=== PATIENT | female | born 1965 | race African-American/Black ===

== ENCOUNTER 2016-10-09 11:45 | Inpatient (IN) | payer MEDICAID ==
[~2016-10-09] VITALS: Ht 152.4 cm; Wt 79.8 kg
[2016-10-09 12:35] LABS: BASOPHILS % 0.3 % (0.0-2.0); EOSINOPHILS % 0.1 % (0.0-5.0); HEMATOCRIT. 32.8 % (36.0-48.0); HEMOGLOBIN. 10.3 g/dL (12.0-16.0); LYMPHOCYTES % 13.8 % (20.0-50.0); MEAN CORPUSCULAR HEMOGLOBIN 25.7 pg (28.0-32.0); MEAN CORPUSCULAR VOLUME 81.8 fL (81.0-99.0); MEAN PLATELET VOLUME 8.2 fl (7.4-10.4); MONOCYTES % 6.8 % (2.0-8.0); PLATELET 358 x1000/uL (130-400); RED BLOOD CELL COUNT 4.01 mill/uL (4.2-5.4); RED CELL DISTRIBUTION WIDTH 14.1 % (11.6-14.6)
[2016-10-09 12:43] LABS: CHLORIDE 109 mEq/L (98-107)
[2016-10-09 12:45] LABS: PARTIAL THROMBOPLASTIN TIME 23.1 sec (24.0-34.0); PROTHROMBIN TIME 9.9 sec
[2016-10-09 12:51] LABS: CARBON DIOXIDE 24 mEq/L (21-32)
[2016-10-09 12:53] LABS: TROPONIN I < 0.02 ng/mL (0.00-0.04)
[2016-10-09 12:58] LABS: HCG SCREEN NEGATIVE
[2016-10-09] MEDS ORDERED: LEVOFLOXACIN 750MG PREMIX 150 ML IV ONE (14:00)
[2016-10-09] MEDS ORDERED: ONDANSETRON HCL 4MG/2ML VIAL IV ONE (14:30)
[2016-10-09] MEDS ORDERED: MORPHINE SULFATE 4 MG/ML CPJ (NOT FOR IM USE) IV ONE (14:30)
[2016-10-09 16:10] LABS: CLARITY URINE CLEAR (CLEAR); COLOR URINE YELLOW (YELLOW); GLUCOSE URINE NEGATIVE (NEGATIVE); KETONES URINE NEGATIVE (NEGATIVE); LEUKOCYTE ESTERASE URINE NEGATIVE (NEGATIVE); NITRITE URINE NEGATIVE (NEGATIVE); OCCULT BLOOD URINE NEGATIVE (NEGATIVE); PROTEIN URINE NEGATIVE (NEGATIVE); SPECIFIC GRAVITY URINE 1.018 (1.005-1.030); UROBILINOGEN URINE 0.2 E.U./dL (0.2-1.0)
[2016-10-09 20:20] VITALS: BP 130/64
[2016-10-09 21:00] VITALS: BP 130/64
[2016-10-09] MEDS ORDERED: IPRATROPIUM/ALBUTEROL 0.5-3(2.5)MG/3ML NEB HHN PRN (21:00)
[2016-10-09] MEDS ORDERED: ONDANSETRON HCL 4MG TABLET PO PRN (21:00)
[2016-10-10] VITALS: BP 115/60
[2016-10-10 04:00] VITALS: BP 120/61
[2016-10-10] MEDS: OMEPRAZOLE 20MG CAPSULE EXTENDED RELEASE PO SCH (06:30)
[2016-10-10] MEDS: HYDROCODONE/ACETAMINOPHEN 10/325MG TABLET PO PRN ×4 (06:30→23:58)
[2016-10-10 07:01] LABS: CARBON DIOXIDE 22 mEq/L (21-32); CHLORIDE 111 mEq/L (98-107)
[2016-10-10 07:11] LABS: HDL CHOLESTEROL 63 mg/dL (40-59); LDL CHOLESTEROL 67 mg/dL (5-100)
[2016-10-10 08:05] VITALS: BP 122/56
[2016-10-10 12:00] VITALS: BP 108/55
[2016-10-10] MEDS: SODIUM CHLORIDE 0.45% 1,000 ML IV SCH (13:51)
[2016-10-10 16:10] VITALS: BP 108/50
[2016-10-10] MEDS ORDERED: AZITHROMYCIN 500 MG in DEXT 5% WATER 250 ML IV SCH (18:00)
[2016-10-10] MEDS ORDERED: CEFTRIAXONE 1 G PREMIX 50 ML IV SCH (18:00)
[2016-10-10 20:00] VITALS: BP 122/53
[2016-10-11] VITALS: BP 113/52
[2016-10-11 04:00] VITALS: BP 102/50
[2016-10-11] MEDS: OMEPRAZOLE 20MG CAPSULE EXTENDED RELEASE PO SCH (06:18)
[2016-10-11] MEDS: HYDROCODONE/ACETAMINOPHEN 10/325MG TABLET PO PRN (06:18)
[2016-10-11] MEDS: SODIUM CHLORIDE 0.45% 1,000 ML IV SCH (06:22)
[2016-10-11 07:43] LABS: BASOPHILS % 1.1 % (0.0-2.0); EOSINOPHILS % 6.1 % (0.0-5.0); HEMATOCRIT. 30.2 % (36.0-48.0); HEMOGLOBIN. 9.5 g/dL (12.0-16.0); MEAN CORPUSCULAR HEMOGLOBIN 26.1 pg (28.0-32.0); MEAN PLATELET VOLUME 9.1 fl (7.4-10.4); MONOCYTES % 8.6 % (2.0-8.0); NEUTROPHILS % 42.2 % (40.0-76.0); PLATELET 285 x1000/uL (130-400); RED BLOOD CELL COUNT 3.64 mill/uL (4.2-5.4); RED CELL DISTRIBUTION WIDTH 14.5 % (11.6-14.6)
[2016-10-11 08:00] VITALS: BP 116/45
[2016-10-11 08:14] LABS: CARBON DIOXIDE 22 mEq/L (21-32); CHLORIDE 109 mEq/L (98-107); TROPONIN I < 0.02 ng/mL (0.00-0.04)
[2016-10-11 12:00] VITALS: BP 127/73
== END 2016-10-11 13:00 | disposition home or self-care (01) | DRG 48 ==
LOC: ER 11:59 → 6WST 14:52 → EDBEDREQTM 14:55 → EDBEDREQ 14:55 → ENRESERV 19:16 → 6WST 10-10 12:12
PROVIDERS: ADMIT Internal Medicine; ATTEND Internal Medicine
DX: G90.8 Other disorders of autonomic nervous system (principal); N17.9 Acute kidney failure, unspecified; J18.9 Pneumonia, unspecified organism; I13.10 Hypertensive heart and chronic kidney disease without heart failure, with stage 1 through stage 4 chronic kidney disease, or unspecified chronic kidney disease; S09.90XA Unspecified injury of head, initial encounter; M25.512 Pain in left shoulder; D64.9 Anemia, unspecified; F32.9 Major depressive disorder, single episode, unspecified; E78.00 Pure hypercholesterolemia, unspecified; W18.39XA Other fall on same level, initial encounter; E78.5 Hyperlipidemia, unspecified; G89.29 Other chronic pain; J45.909 Unspecified asthma, uncomplicated; N18.9 Chronic kidney disease, unspecified; Z59.0 Homelessness; Z79.82 Long term (current) use of aspirin; Y93.89 Activity, other specified; Y92.89 Other specified places as the place of occurrence of the external cause; Y99.8 Other external cause status
CPT/HCPCS: 36415; 70450; 71010; 71250; 80048; 80053; 80061; 81003; 83690; 83735; 84443; 84484; 84703; 85025; 85610; 85730; 87040; 87086; 93005; 96374; 96375; 99285; J0456; J0696; J1956; J2270; J2405; J7060

== ENCOUNTER 2017-09-17 21:07 | Emergency (ER) | payer MEDICAID ==
[~2017-09-17] VITALS: Ht 162.6 cm; Wt 72.0 kg
[2017-09-17] MEDS ORDERED: KETOROLAC 30MG/ML VIAL IV STA (22:32)
[2017-09-17] MEDS ORDERED: METHYLPREDNISOLONE SOD SUCC 125 MG/2 ML VIAL IV SCH (22:45)
[2017-09-17] MEDS ORDERED: FAMOTIDINE 20MG/2ML VIAL IV ONE (22:45)
[2017-09-17] MEDS ORDERED: DIPHENHYDRAMINE 50MG/ML VIAL IV ONE (22:45)
[2017-09-17 23:56] LABS: BASOPHILS % 1.9 % (0.0-2.0); EOSINOPHILS % 4.1 % (0.0-5.0); HEMATOCRIT. 36.8 % (36.0-48.0); HEMOGLOBIN. 11.6 g/dL (12.0-16.0); LYMPHOCYTES % 21.8 % (20.0-50.0); MEAN CORPUSCULAR HEMOGLOBIN 26.3 pg (28.0-32.0); MEAN CORPUSCULAR VOLUME 83.1 fL (81.0-99.0); MEAN PLATELET VOLUME 8.9 fl (7.4-10.4); MONOCYTES % 6.7 % (2.0-8.0); NEUTROPHILS % 65.5 % (40.0-76.0); PLATELET 363 x1000/uL (130-400); RED BLOOD CELL COUNT 4.42 mill/uL (4.2-5.4); RED CELL DISTRIBUTION WIDTH 15.6 % (11.6-14.6)
[2017-09-18 00:02] LABS: INR 0.9; PARTIAL THROMBOPLASTIN TIME 21.7 sec (23.4-31.0); PROTHROMBIN TIME 9.7 sec (9.4-11.6)
[2017-09-18 00:21] LABS: CHLORIDE 111 mEq/L (98-107)
[2017-09-18 03:45] VITALS: BP 140/87
== END 2017-09-18 03:47 | disposition home or self-care (01) ==
LOC: ER 21:07
DX: S40.819A Abrasion of unspecified upper arm, initial encounter (principal); S80.819A Abrasion, unspecified lower leg, initial encounter; T50.905A Adverse effect of unspecified drugs, medicaments and biological substances, initial encounter; I10 Essential (primary) hypertension; J45.909 Unspecified asthma, uncomplicated; E78.00 Pure hypercholesterolemia, unspecified; N28.9 Disorder of kidney and ureter, unspecified; W54.0XXA Bitten by dog, initial encounter; Y93.89 Activity, other specified; Y92.89 Other specified places as the place of occurrence of the external cause; Y99.8 Other external cause status
CPT/HCPCS: 36415; 71045; 80053; 83880; 84484; 85025; 85610; 85730; 93005; 96374; 96375; 99285; J1200; J1885; J2930; J3490

== ENCOUNTER 2018-10-15 23:09 | Emergency (ER) | payer MEDICAID ==
[~2018-10-15] VITALS: Ht 162.6 cm; Wt 82.0 kg
[2018-10-15] MEDS ORDERED: KETOROLAC 30MG/ML VIAL IV STA (23:28)
[2018-10-15] MEDS ORDERED: PREDNISONE 20MG TABLET PO ONE (23:30)
[2018-10-15 23:54] LABS: CHLORIDE 112 mEq/L (98-107)
[2018-10-15 23:58] LABS: ETHANOL BLOOD < 10 mg/dL
[2018-10-16] LABS: BASOPHILS % 0.4 % (0.0-2.0); EOSINOPHILS % 5.5 % (0.0-5.0); HEMATOCRIT. 36.5 % (36.0-48.0); HEMOGLOBIN. 11.5 g/dL (12.0-16.0); LYMPHOCYTES % 32.6 % (20.0-50.0); MEAN CORPUSCULAR HEMOGLOBIN 25.6 pg (28.0-32.0); MEAN CORPUSCULAR VOLUME 81.5 fL (81.0-99.0); MEAN PLATELET VOLUME 8.4 fl (7.4-10.4); MONOCYTES % 7.5 % (2.0-8.0); PLATELET 386 x1000/uL (130-400); RED BLOOD CELL COUNT 4.48 mill/uL (4.2-5.4); RED CELL DISTRIBUTION WIDTH 15.3 % (11.6-14.6)
[2018-10-16] MEDS ORDERED: HYDRALAZINE 20MG/ML VIAL IV ONE (01:45)
[2018-10-16] MEDS ORDERED: MORPHINE SULFATE 4 MG/ML CPJ (NOT FOR IM USE) IV NR (01:45)
[2018-10-16] MEDS ORDERED: IBUPROFEN 600MG TABLET PO ONE (09:00)
[2018-10-16] MEDS ORDERED: ACETAMINOPHEN 325MG TABLET PO ONE (09:15)
[2018-10-16 11:19] VITALS: BP 198/81
== END 2018-10-16 13:13 | disposition left against medical advice (07) ==
LOC: ER 23:09
DX: R07.89 Other chest pain (principal); M25.562 Pain in left knee; G89.29 Other chronic pain; I10 Essential (primary) hypertension
CPT/HCPCS: 36415; 71045; 80053; 80320; 83880; 84484; 85025; 93005; 96374; 99284; J0360; J1885; J7512; G0480

== ENCOUNTER 2018-12-16 20:00 | Inpatient (IN) | payer MEDICAID ==
[~2018-12-16] VITALS: Ht 154.9 cm; Wt 86.6 kg
[2018-12-16] MEDS ORDERED: KETOROLAC 30MG/ML VIAL IV STA (21:12)
[2018-12-16] MEDS ORDERED: SODIUM CHLORIDE 0.9% 1,000 ML IV ONE (21:12)
[2018-12-16] MEDS ORDERED: CLINDAMYCIN 600 MG in DEXTROSE 5% WATER 50 ML IV ONE (21:15)
[2018-12-16 21:42] LABS: BASOPHILS % 0.2 % (0.0-2.0); EOSINOPHILS % 6.4 % (0.0-5.0); HEMATOCRIT. 29.8 % (36.0-48.0); HEMOGLOBIN. 9.5 g/dL (12.0-16.0); LYMPHOCYTES % 27.1 % (20.0-50.0); MEAN CORPUSCULAR HEMOGLOBIN 25.7 pg (28.0-32.0); MEAN CORPUSCULAR VOLUME 80.2 fL (81.0-99.0); MEAN PLATELET VOLUME 8.3 fl (7.4-10.4); MONOCYTES % 7.7 % (2.0-8.0); NEUTROPHILS % 58.6 % (40.0-76.0); PLATELET 336 x1000/uL (130-400); RED BLOOD CELL COUNT 3.72 mill/uL (4.2-5.4); RED CELL DISTRIBUTION WIDTH 14.9 % (11.6-14.6)
[2018-12-16 21:48] LABS: CHLORIDE 111 mEq/L (98-107)
[2018-12-16] MEDS ORDERED: CLINDAMYCIN 600MG PREMIX 50 ML IV NR (22:30)
[2018-12-16] MEDS ORDERED: HYDROCODONE/ACETAMINOPHEN 5/325MG TABLET PO ONE (23:00)
[2018-12-17] MEDS ORDERED: CLONIDINE 0.1MG TABLET PO PRN (07:45)
[2018-12-17] MEDS ORDERED: HYDROCODONE/ACETAMINOPHEN 5/325MG TABLET PO PRN (07:45)
[2018-12-17] MEDS ORDERED: ACETAMINOPHEN 325MG TABLET PO PRN (07:45)
[2018-12-17] MEDS ORDERED: IPRATROPIUM/ALBUTEROL 0.5-3(2.5)MG/3ML NEB HHN PRN (07:45)
[2018-12-17] MEDS ORDERED: LORAZEPAM 0.5MG TABLET PO PRN (07:45)
[2018-12-17] MEDS ORDERED: DOCUSATE SODIUM 100MG CAPSULE PO PRN (07:45)
[2018-12-17] MEDS ORDERED: ONDANSETRON HCL 4MG/2ML INJ IV PRN (07:45)
[2018-12-17] MEDS: MORPHINE SULFATE 2 MG/ML CPJ (NOT FOR IM USE) IV PRN ×4 (08:30→22:40)
[2018-12-17 11:00] VITALS: BP 152/78
[2018-12-17 12:00] VITALS: BP 170/85
[2018-12-17 16:00] VITALS: BP 147/72
[2018-12-17] MEDS ORDERED: OXYCODONE HCL/ACETAMINOPHEN 5/325MG TABLET PO PRN (16:45)
[2018-12-17] MEDS: QUETIAPINE FUMARATE 25MG TABLET PO SCH ×2 (17:00→17:56)
[2018-12-17] MEDS: DOCUSATE SODIUM 100MG CAPSULE PO SCH (17:55)
[2018-12-17] MEDS: AMLODIPINE 5MG TABLET PO SCH (17:56)
[2018-12-17] MEDS: DULOXETINE HCL 30MG DR CAPSULE PO SCH (17:59)
[2018-12-17 18:36] LABS: HCG SCREEN NEGATIVE
[2018-12-17 20:00] VITALS: BP 149/73
[2018-12-17] MEDS ORDERED: DOCU-138 MT (20:25)
[2018-12-17] MEDS ORDERED: BUME1TAB33 MT (20:25)
[2018-12-17] MEDS ORDERED: CYCL25PO21 MT (20:25)
[2018-12-17] MEDS ORDERED: OXYC-611 PO (20:25)
[2018-12-17] MEDS ORDERED: FERR325T30 PO (20:25)
[2018-12-17] MEDS ORDERED: DULO30CA2 PO (20:25)
[2018-12-17] MEDS ORDERED: LEVO500T89 MT (20:25)
[2018-12-17] MEDS: CYCLOBENZAPRINE 10MG TABLET PO SCH (22:21)
[2018-12-17] MEDS: DEXT 5%/0.45% NACL 1000ML 1,000 ML IV SCH (22:23)
[2018-12-17] MEDS ORDERED: VANCOMYCIN 1 G PREMIX 200 ML IV SCH (23:00)
[2018-12-18] VITALS: BP 100/51
[2018-12-18 04:00] VITALS: BP 129/63
[2018-12-18] MEDS: MORPHINE SULFATE 2 MG/ML CPJ (NOT FOR IM USE) IV PRN ×4 (04:40→21:09)
[2018-12-18] MEDS: CYCLOBENZAPRINE 10MG TABLET PO SCH ×3 (05:52→21:08)
[2018-12-18 06:57] LABS: HEMATOCRIT. 31.3 % (36.0-48.0); HEMOGLOBIN. 9.7 g/dL (12.0-16.0); MEAN CORPUSCULAR HEMOGLOBIN 25.7 pg (28.0-32.0); MEAN CORPUSCULAR VOLUME 82.5 fL (81.0-99.0); MEAN PLATELET VOLUME 8.8 fl (7.4-10.4); RED BLOOD CELL COUNT 3.79 mill/uL (4.2-5.4); RED CELL DISTRIBUTION WIDTH 14.9 % (11.6-14.6)
[2018-12-18 08:43] LABS: PLATELET ESTIMATE SLIGHTLY DECREASED
[2018-12-18 08:44] LABS: PLATELET 88 x1000/uL (130-400)
[2018-12-18] MEDS: DULOXETINE HCL 30MG DR CAPSULE PO SCH (09:00)
[2018-12-18] MEDS: QUETIAPINE FUMARATE 25MG TABLET PO SCH (09:00)
[2018-12-18] MEDS: DOCUSATE SODIUM 100MG CAPSULE PO SCH ×2 (11:17→17:05)
[2018-12-18] MEDS: AMLODIPINE 5MG TABLET PO SCH (11:18)
[2018-12-18] MEDS: DEXT 5%/0.45% NACL 1000ML 1,000 ML IV SCH ×2 (11:50→21:09)
[2018-12-18 16:00] VITALS: BP 167/70
[2018-12-18] MEDS: VANCOMYCIN 750 MG PREMIX 150 ML IV SCH (17:01)
[2018-12-18] MEDS: HYDROXYZINE 25MG TABLET PO SCH (21:08)
[2018-12-18] MEDS ORDERED: VANCOMYCIN 500 MG PREMIX 100 ML IV SCH (23:00)
[2018-12-19] VITALS: BP 113/69
[2018-12-19] MEDS: HYDROXYZINE 25MG TABLET PO SCH ×2 (06:00→14:00)
[2018-12-19] MEDS: CYCLOBENZAPRINE 10MG TABLET PO SCH ×2 (06:00→14:00)
[2018-12-19 08:00] VITALS: BP 151/76
[2018-12-19] MEDS: MORPHINE SULFATE 2 MG/ML CPJ (NOT FOR IM USE) IV PRN (08:12)
[2018-12-19] MEDS: DOCUSATE SODIUM 100MG CAPSULE PO SCH (09:00)
[2018-12-19] MEDS: DULOXETINE HCL 30MG DR CAPSULE PO SCH (09:00)
[2018-12-19] MEDS: QUETIAPINE FUMARATE 25MG TABLET PO SCH (09:00)
[2018-12-19] MEDS: AMLODIPINE 5MG TABLET PO SCH (10:00)
[2018-12-19] MEDS: VANCOMYCIN 750 MG PREMIX 150 ML IV SCH (10:01)
[2018-12-19 12:00] VITALS: BP 155/66
[2018-12-19] MEDS ORDERED: AMLO5TAB88 PO (12:04)
[2018-12-19] MEDS ORDERED: OXYC-611 PO (12:04)
[2018-12-19 12:17] VITALS: BP 151/76
== END 2018-12-19 15:23 | disposition home or self-care (01) | DRG 349 ==
LOC: ER 20:00 → 7WST 12-17 06:26 → EDBEDREQTM 12-17 06:29 → EDBEDREQ 12-17 06:29 → ENRESERV 12-17 07:40
PROVIDERS: ADMIT Internal Medicine; ATTEND Internal Medicine
DX: T84.54XA Infection and inflammatory reaction due to internal left knee prosthesis, initial encounter (principal); N17.0 Acute kidney failure with tubular necrosis; D72.1 Eosinophilia; L03.116 Cellulitis of left lower limb; D50.9 Iron deficiency anemia, unspecified; F11.90 Opioid use, unspecified, uncomplicated; N18.3 Chronic kidney disease, stage 3 (moderate); E66.9 Obesity, unspecified; E78.5 Hyperlipidemia, unspecified; F41.8 Other specified anxiety disorders; I12.9 Hypertensive chronic kidney disease with stage 1 through stage 4 chronic kidney disease, or unspecified chronic kidney disease; J45.909 Unspecified asthma, uncomplicated; Z96.652 Presence of left artificial knee joint; Y83.8 Other surgical procedures as the cause of abnormal reaction of the patient, or of later complication, without mention of misadventure at the time of the procedure; Z59.0 Homelessness; Y92.89 Other specified places as the place of occurrence of the external cause; Z68.36 Body mass index [BMI] 36.0-36.9, adult
CPT/HCPCS: 36415; 73562; 73610; 80048; 82728; 83540; 83550; 83605; 84703; 99285; J1885; J2270; J3370; J3490; J7030; J7060

== ENCOUNTER 2019-04-09 16:20 | Emergency (ER) | payer MEDICAID ==
[~2019-04-09] VITALS: Ht 165.1 cm; Wt 90.0 kg
[~2019-04-09 16:20] MED LIST: AMLO5TAB88 PO; CYCL25PO21 MT; DOCU-138 MT; DULO30CA2 PO; FERR325T30 PO; OXYC-611 PO
[2019-04-09 22:10] VITALS: BP 180/64
== END 2019-04-10 07:14 | disposition left against medical advice (07) ==
LOC: ER 16:20
DX: L08.9 Local infection of the skin and subcutaneous tissue, unspecified (principal); I10 Essential (primary) hypertension; N28.9 Disorder of kidney and ureter, unspecified; Z79.899 Other long term (current) drug therapy
CPT/HCPCS: 99283

== ENCOUNTER 2019-09-11 08:36 | Emergency (ER) | payer MEDICAID ==
[~2019-09-11] VITALS: Ht 154.9 cm; Wt 88.0 kg
[2019-09-11 08:43] VITALS: BP 162/72
== END 2019-09-11 11:55 | disposition left against medical advice (07) ==
LOC: ER 08:40
DX: Z53.21 Procedure and treatment not carried out due to patient leaving prior to being seen by health care provider (principal)

== ENCOUNTER 2019-12-12 09:23 | Emergency (ER) | payer MEDICAID ==
[~2019-12-12] VITALS: Ht 152.4 cm; Wt 66.0 kg
[2019-12-12 09:56] VITALS: BP 146/64
[2019-12-12] MEDS ORDERED: KETOROLAC 30MG/ML VIAL IM ONE (10:15)
== END 2019-12-12 11:15 | disposition home or self-care (01) ==
LOC: ER 09:23
DX: G57.61 Lesion of plantar nerve, right lower limb (principal); J45.909 Unspecified asthma, uncomplicated; Z79.899 Other long term (current) drug therapy; Z98.890 Other specified postprocedural states
CPT/HCPCS: 73630; 96372; 99283; J1885